=== PATIENT | male | born 1950 | race Caucasian/White ===

== ENCOUNTER → 2016-10-29 | Day surgery (SDC) | payer MEDICARE ==
[~2016-10-29] MED LIST: ACETAMINOPHEN PO; ADVAIR 250-501 EAC1 INH; ADVAIR 5001 DISK W/D PO; ALBUTEROL MININEB NEB; ALBUTEROL17 GM INH; ALL DAY ALLERGY10 M3 PO; ALLEGRA PO; ASPIRIN EC81 M1 PO; BENAZEPRIL HCL40 MG PO; CLARISPRAY9.9 ML; DIOVAN PO; GLUCOTROL PO; HCTZ PO; LOTENSIN20 MG PO; MUCINEX100 MG PO; NEXIUM PO; NORVASC PO; NORVASC10 MG PO; OMEPRAZOLE20 M2 PO; OXYGEN; PRAVACHOL80 MG PO; PREDNISONE; SINGULAIR PO; TOPROL XL50 MG PO; ZOCOR PO; ZYRTEC10 M1 PO
--- NOTE | ~2016-10-29 | OR ---
Unit #: [id number] #: [id number] Patient: KIRTI DALEY [id number] [address] [place], [place] [address] [id number] O MR#: [id number] NAME: KIRTI DALEY. ROOM: Date of Procedure: 10/29/2016 Admission Date: 10/29/2016 Surgeon: Santos Mcmullen M.D. : 1950 Attending Physician: Santos Mcmullen M.D. Primary Care Physician: Pavithra Babcock M.D. OPERATIVE REPORT PROCEDURE PERFORMED Esophagogastroduodenoscopy with biopsy. 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 He has intermittent dysphagia also. MEDICATIONS Monitored anesthesia. POSTOPERATIVE FINDINGS 1. Small segment of Urias esophagus along with moderate sized hiatal hernia. Biopsies taken. 2. Mild gastritis. Biopsies taken. 3. Normal duodenum and distal duodenum. PLAN Increase PPI to 20 mg b.i.d. Reflux precautions reinforced. Follow up on pathology. Urias's is identified and repeat upper endoscopy in 3 years. DESCRIPTION OF PROCEDURE The patient was explained of the procedure, risks, and benefits along with risks and benefits of anesthesia. He was brought to the endoscopy room. Propofol anesthesia was given. Bite block was placed. The scope was passed down the mouth into the esophagus, stomach, duodenum, and distal duodenum. Findings as described. Biopsies taken. Gently, I pulled it out of the patient's mouth. He tolerated it well. Dictated by... Maggie Beard/nicole TD: 10/29/2016 08:51 JOB #: [id number] Unit #: [id number] #: [id number] Patient: KIRTI DALEY OPERATIVE REPORT Page 1 of 1 X Santos Mcmullen MD X PROCEDURE OPERATIVE NOTE
== END | disposition home or self-care (01) ==
LOC: COPS 05:52
DX: K29.50 Unspecified chronic gastritis without bleeding (principal); K20.9 Esophagitis, unspecified; K44.9 Diaphragmatic hernia without obstruction or gangrene; E11.9 Type 2 diabetes mellitus without complications; J45.909 Unspecified asthma, uncomplicated; I25.2 Old myocardial infarction; Z87.442 Personal history of urinary calculi; Z87.19 Personal history of other diseases of the digestive system; Z79.82 Long term (current) use of aspirin; Z79.51 Long term (current) use of inhaled steroids; Z79.899 Other long term (current) drug therapy; Z98.1 Arthrodesis status; Z98.890 Other specified postprocedural states
CPT/HCPCS: 82947; 88305; 88312

== ENCOUNTER 2016-12-31 21:47 | Inpatient (IN) | payer MEDICARE ==
[~2016-12-31] VITALS: Ht 167.6 cm; Wt 97.0 kg
--- NOTE | ~2016-12-31 | HP ---
Unit #: [id number] #: [id number] Patient: KIRTI DALEY [id number] [facility] [address] [place], [place] [address] [id number] I MR#: [id number] NAME: KIRTI DALEY. ROOM: 331 Age: 66 Sex: M Admission Date: 01/01/2017 : 1950 Attending Physician: Shanti Solomon M.D. Primary Care Physician: Primary Care Physician No HISTORY AND PHYSICAL CHIEF COMPLAINT COPD exacerbation and bronchitis. HISTORY OF PRESENT ILLNESS This pleasant 66-year-old male with COPD, hypertension, GERD, CAD, is admitted for COPD exacerbation. The patient was in his usual state of health until 2 days prior to admission when he developed increasing shortness of breath, bronchospasm and a deep nonproductive cough. The cough is severe enough where he feels lightheaded. Denies fevers, sweats or chills. Notes some chest tightness which I believe is related to his cough. He presented to this emergency department late last evening with significant bronchospasm on exam. He was given bronchodilators along with 125 mg Solu-Medrol with improvement of his symptoms. However, his 02 sats were only about 88% on room air. On examination he still has significant wheezing. ? PAST MEDICAL HISTORY 1. COPD. 2. Hyperlipidemia. 3. Hypertension. 4. GERD. Last EGD 09/2016 revealed small segment Urias's esophagus with mild gastritis, moderate hiatal hernia. 5. CAD with previous cardiac catheterization revealing a small artery which apparently had stenosis per the patient which was not amenable to revascularization. Cardiolite stress test performed 05/2016 did show an area of anterior ischemia. The patient has followup with [facility] in March. Previous echo 2010 ejection fraction 55% with mild MR, , AR and TR. Right ventricular systolic pressures of 30 to 40 mmHg. 6. History of diverticular lower GI bleed, 08/2008. Last colonoscopy was performed 2015 revealing diverticular disease and internal hemorrhoids. The patient previously underwent removal of polyps in the past. 7. History of kidney stones requiring surgery. 8. C-spine surgery. SOCIAL HISTORY The patient lives alone. He stopped smoking over 10 years ago, and does not drink alcohol. FAMILY HISTORY Colon and prostate cancer. Unit #: [id number] #: [id number] Patient: KIRTI DALEY ALLERGIES No known drug allergies. MEDICATIONS Pravachol 80 mg daily. Benazepril 40 mg daily. Toprol XL, will check dose. Omeprazole 20 mg daily. Singulair 10 mg daily. Zyrtec 10 mg daily. Norvasc 10 mg daily. Advair 250/50 one puff b.i.d. Flonase Nasal [place]. REVIEW OF SYSTEMS Notable for cough, shortness of breath, bronchospasms, CAD, COPD, hyperlipidemia, hypertension, GERD, polyps, diverticular disease, kidney stone, C-spine surgery. All other systems are reviewed and are otherwise negative. PHYSICAL EXAMINATION GENERAL APPEARANCE: Pleasant moderately obese 66-year-old male currently in no acute distress. VITAL SIGNS: Temp 97, pulse 97, respirations 20, B/P 155/102. O2 sats were as low as 88% on room air. HEENT: Eyes - PERRLA, extraocular muscles are intact. Pharynx is benign. NECK: Supple without adenopathy or thyromegaly. CHEST: Chest reveals expiratory wheezed bilaterally. HEART: Slightly tachy S1 and S2 without murmur. ABDOMEN: Bowel sounds are present. No hepatosplenomegaly, tenderness or masses. EXTREMITIES: Without CC or E. Pedal pulses are present. NEUROLOGIC: The patient is awake, alert and oriented. Cranial nerves are intact. He has equal strength throughout. DIAGNOSTIC STUDIES LABORATORY: Hematocrit 45.9, white blood count is 11.5, MCV 78, normal platelet count. SMA 12 - glucose 174, alkaline phos 99. IMAGING: Chest x-ray - mild thoracic aorta ectasia, unchanged since 2008. No acute disease. CARDIOVASCULAR: EKG - sinus tachycardia, rate 118, otherwise normal. ASSESSMENT 1. COPD exacerbation with acute hypoxic respiratory failure due to bronchitis. 2. Essential hypertension. 3. Hypoglycemia. 4. Hyperlipidemia. 5. CAD and valvular heart disease. 6. GERD. PLAN 1. Steroids, bronchodilators, mucolytics and Zithromax. 2. DVT prophylaxis. 3. Obtain hemoglobin A1C and obtain Accu-Cheks while on steroids. Unit #: [id number] #: [id number] Patient: KIRTI DALEY STAT * RESULT Dictated by Maggie Ramsey/mykel TD: 01/01/2017 04:33 JOB #: [id number] CC: Pavithra Babcock M.D. HISTORY AND PHYSICAL Page 1 of 1 X Shanti Solomon MD X HISTORY AND PHYSICAL
--- NOTE | ~2016-12-31 | CO ---
Unit #: [id number] #: [id number] Patient: KIRTI DALEY [id number] [address] [place], [place] [address] [id number] I MR#: [id number] NAME: KIRTI DALEY. ROOM: 222 Age: 66 Sex: M Admission Date: 01/01/2017 : 1950 Attending Physician: Carmina Webb M.D. Consultation Date: 01/05/2017 CONSULTATION REPORT REASON FOR CONSULT COPD exacerbation. CHIEF COMPLAINT Shortness of breath. HISTORY OF PRESENT ILLNESS This is a very pleasant 66-year-old male with a past medical history significant for smoking for 30 years, hypertension, possible COPD versus asthma, GERD, coronary artery disease, and allergies, who presented to the emergency room with shortness of breath. Patient presented to the emergency room with a nonproductive cough, progressive shortness of breath, wheezing, and bronchospasm. Patient stated that he feels that his mucus is stuck in his throat, and sometimes he feels he is about to pass out when he is coughing. He stated that also he has allergies especially during summertime, and certain things make him sneeze, get runny eyes, and itching. Patient has smoked since age 12 for about 30 years, but he quit 20 years ago. He never had asthma in his childhood. PAST MEDICAL HISTORY 1. Chronic obstructive pulmonary disease. 2. Possible asthma. 3. Hyperlipidemia. 4. Hypertension. 5. Gastroesophageal reflux disease. 6. Coronary artery disease. 7. Diverticular disease. 8. Kidney stone. PAST SURGICAL HISTORY 1. C-spine surgery. 2. Kidney stone removal. SOCIAL HISTORY Patient lives alone. He quit smoking 20 years ago. However, in the medical record, it stated that he quit 10 years ago. He smoked for 30 years. No history of alcohol or drug abuse. FAMILY HISTORY Colon and prostate cancer. Unit #: [id number] #: [id number] Patient: KIRTI DALEY ALLERGIES No known drug allergies. HOME MEDICATIONS 1. Pravachol. 2. Benazepril. 3. Toprol. 4. Omeprazole. 5. Singulair. 6. Zyrtec. 7. Norvasc. 8. Advair. 9. Flonase. REVIEW OF SYSTEMS A 12-point review of systems was obtained and was negative except for what was mentioned in the HPI. PHYSICAL EXAMINATION GENERAL: Patient is in no acute distress. VITAL SIGNS: Temperature 98.2, blood pressure 149/95, and O2 saturation 96% on 2.5 liters nasal cannula. HEENT: Atraumatic and normocephalic. PERRLA. EOMI. NECK: Supple. No JVD, no lymphadenopathy. CLEAR: Bilateral diffuse rhonchi and wheezing. HEART: S1 and S2. No murmur, gallops, or rubs. ABDOMEN: Soft and nontender. Bowel sounds positive. No hepatosplenomegaly. EXTREMITIES: Trace edema. No cyanosis. SKIN: No rashes. CENTRAL NERVOUS SYSTEM: Awake, alert, and oriented x3. No focal motor/sensory deficits. DIAGNOSTIC STUDIES LABORATORY: Creatinine 0.9 and CO2 of 30. White blood count 13.8 and hemoglobin 14.4. IMAGING: Chest x-ray shows no acute infiltrate. ASSESSMENT 1. Acute exacerbation of chronic obstructive pulmonary disease. 2. Acute hypoxic respiratory failure. 3. Morbid obesity. 4. Hypertension. 5. Coronary artery disease. 6. Hyperglycemia, steroid related. PLAN 1. Will continue patient on oxygen but will wean down as tolerated. His baseline is room air. 2. IV steroids and bronchodilators. 3. Mucolytics and hypertonic saline. 4. Will add flutter valve and will encourage out of bed to chair and ambulation. 5. Will continue Zyrtec and Singulair as he probably has a component of allergies plus/minus asthma. 6. Patient will need PFT as an outpatient. Unit #: [id number] #: [id number] Patient: KIRTI DALEY Avis 7. DVT prophylaxis. 8. Patient may benefit from Lasix p.r.n. I would like to thank Dr. Galaviz for allowing me to be part of this patient's care. Dictated by... Maggie Hernandez TD: 01/05/2017 22:08 JOB #: [id number] CONSULTATION REPORT Page 1 of 1 X JACKLYN CARRERA MD X CONSULTATION REPORT
--- NOTE | ~2016-12-31 | DS ---
Unit #: [id number] #: [id number] Patient: KIRTI DALEY [id number] [address] [address] [id number] I MR#: [id number] NAME: KIRTI DALEY. ROOM: 222 Age: 66 Sex: M Admission Date: 01/01/2017 : 1950 Discharge Date: 01/08/2017 Attending Physician: Lu Galaviz M.D. Primary Care Physician: No Primary Care Physician DISCHARGE SUMMARY DISCHARGE DIAGNOSES 1. Acute hypoxic respiratory failure. 2. Chronic obstructive pulmonary disease with exacerbation. 3. Acute bronchitis. 4. Leukocytosis, likely from steroids. 5. Sepsis, likely from acute bronchitis. 6. Seasonal allergies. 7. Diabetes mellitus type 2 with mild elevation of hemoglobin A1c, newly diagnosed. 8. Hypertension. 9. Hyperlipidemia. 10. History of lower gastrointestinal bleed from diverticulosis. 11. Coronary artery disease, status post catheterization. CONSULTATION Dr. Pina Hernandez. PROCEDURES None. LAB DATA Glucose 151. Blood cultures negative. Creatinine 1.0, WBC 20.5, hemoglobin 14.2, platelets 245. ALLERGIES None. DISCHARGE MEDICATIONS 1. Albuterol two puffs inhalation four times daily p.r.n. shortness of breath. 2. Fluticasone with Solu-Medrol, two disc inhalation b.i.d. 3. Prednisone tapering dose. 4. Flonase 0.05% nasal spray daily. 5. Cetirizine 10 mg p.o. daily. 6. Norvasc 10 daily. 7. Toprol XL 50 daily. 8. Humibid LA 600 p.o. b.i.d. 9. Pravastatin 80 daily. 10. Benazepril 40 daily. 11. Singulair 10 daily. 12. Omeprazole 20 daily. 13. Saline nasal spray q.3 p.r.n. 14. Glucotrol 5 mg p.o. b.i.d. before meals. 15. Albuterol nebulizer four times daily p.r.n. shortness of breath. Unit #: [id number] #: [id number] Patient: KIRTI DALEY HOSPITALIZATION COURSE 66-year-old admitted because of shortness of breath. Acute hypoxic respiratory failure from COPD: Patient was on 3 L, currently he is on 2 L. I am going to check home O2 evaluation and arrange home O2 if sats less than 89%. COPD with exacerbation with acute bronchitis and sepsis: Patient was given IV Solu-Medrol. Broad spectrum antibiotics have been given. Duo-Nebs given. Currently breathing better. He does have mild shortness of breath and wheezing. Continue with Duo-Nebs and prednisone tapering dose at home and follow with Dr. Noel. Leukocytosis, mostly from steroids. No other signs of infection. Diarrhea resolved. Less likely C. diff. Diabetes mellitus type 2, newly diagnosed, likely from steroids. Start on glipizide. Continue with that and follow with family physician as an outpatient. Discharge home. Follow with family physician in one week time. Follow with Dr. Noel in one week time. Home O2 evaluation will be done before discharge. Discharge time taken is 35 minutes. Dictated by... Maggie Nichols/ruiz TD: 01/09/2017 12:04 JOB #: [id number] DISCHARGE SUMMARY Page 1 of 1 X Lu Galaviz MD X DISCHARGE SUMMARY
--- NOTE | ~2016-12-31 | CR72 ---
[facility] A Service of [facility] RADIOLOGY TEXT RESULTS PATIENT: KIRTI DALEY LOCATION: [facility] 331-01 : [birth year] UNIT #: [id number] AGE: [address]: Carmina Webb MD SEX: M ORDER DR: [id number] [facility] [address] [facility]. [place], [place] [address] [id number] MR#: [id number] Acc #: [id number] NAME: KIRTI DALEY : 1950 SEX: M STUDY DATE/TIME: 01/01/2017 0:53 UNIT: JANES ROOM: STUDY DESCRIPTION: CR Chest Single View Portable Attending Physician: Law Wray M.D. Ordering Physician: Law Wray M.D. Primary Care Physician: Primary Care Physician No MEDICAL IMAGING REPORT This report is preliminary unless electronic signature is present EXAM AP portable chest DATE: 01/01/2017 at 00:53 HISTORY Shortness of breath with asthma for 2 days. COMPARISON AP portable chest 10/01/2008. FINDINGS Mild thoracic aortic ectasia has a similar appearance to prior. Heart size is normal. Lungs appear free of acute airspace disease. No pleural effusion or pneumothorax is identified. There are surgical changes within the cervical spine. IMPRESSION 1. Stable thoracic aortic ectasia, similar to the 2009 study. 2. No acute chest findings. 3. Surgical changes within the cervical spine. Dictated by... Yashira Stewart M.D. THIS IS AN ELECTRONICALLY VERIFIED REPORT Yashira Stewart M.D. at 01/01/2017 9:49 PM [facility]/mykel TD: 01/01/2017 02:30 JOB #: [id number] [facility] A Service of [facility] RADIOLOGY TEXT RESULTS PATIENT: KIRTI DALEY LOCATION: [facility] 331-01 : [birth year] UNIT #: [id number] AGE: [address]: Carmina Webb MD SEX: M ORDER DR: MEDICAL IMAGING REPORT Page 1 of 1 COPY
--- NOTE | ~2016-12-31 | EKG ---
PATIENT: KIRTI DALEY UNIT #: [id number] Ventricular Rate: 118 BPM Atrial Rate: 118 BPM P-R Interval: 168 ms QRS Duration: 90 ms Q-T Interval: 322 ms QTC Calculation(Bezet): 451 ms P [place]: 50 degrees Calculated R [place]: 19 degrees Calculated T [place]: 52 degrees Diagnosis Line: Sinus tachycardia Diagnosis Line: Otherwise normal ECG Diagnosis Line: No previous ECGs available Diagnosis Line: Confirmed by AFSANEH ESQUIVEL MD ([id number]) on 01/03/2017 Diagnosis Line: 8:09:21 AM INTERPRETING MD: SIERRA ENCINAS
[~2016-12-31 21:47] MED LIST changes: -ADVAIR 250-501 EAC1 INH; -ALBUTEROL MININEB NEB; -ALBUTEROL17 GM INH; -BENAZEPRIL HCL40 MG PO; -CLARISPRAY9.9 ML; -GLUCOTROL PO; -MUCINEX100 MG PO; -NORVASC10 MG PO; -OXYGEN; -PREDNISONE; -ZYRTEC10 M1 PO
[2016-12-31 22:22] LABS: BASOPHIL# 0.1 X10e3 (0-0.3); BASOPHIL% 0.5 % (0-2.5); EOSINOPHIL# 0.6 X10e3 (0-0.7); EOSINOPHIL% 5.2 % (0.0-7.0); HEMATOCRIT 45.9 % (38.0-50.0); HEMOGLOBIN 15.3 gm/dL (13.0-16.0); LYMPHOCYTE# 1.9 X10e3 (1.0-3.5); LYMPHOCYTE% 16.6 % (17.0-45.0); MEAN CELL VOLUME 77.9 FL (83-96); MEAN CORPUSCULAR HGB CONC 33.3 g/dL (30-36); MONOCYTE# 0.8 X10e3 (0-1.0); MONOCYTE% 6.6 % (3.0-12.0); NEUTROPHIL# 8.2 X10e3 (1.5-7.1); NEUTROPHIL% 71.1 % (40-75); PLATELET COUNT 255 X10e3 (140-420); RED BLOOD COUNT 5.89 X10e (3.90-5.60); RED CELL DISTRIBUTION WIDTH 14.4 % (11.0-15.5); WHITE BLOOD COUNT 11.5 X10e3 (4.0-10.5)
[2016-12-31 22:23] LABS: DIFF IND NO
[2016-12-31 22:43] LABS: ALBUMIN SERUM 4.3 g/dL (3.5-5.0); BILIRUBIN, DIRECT 0.1 mg/dL (0.0-0.2); BILIRUBIN,INDIRECT 0.5 mg/dL (0.0-0.9); BILIRUBIN,TOTAL 0.6 mg/dL (0.2-2.0); CALCIUM SERUM 9.4 mg/dL (8.4-10.2); GLOM FILT RATE Estimated 78.1 mL/min (>60); POTASSIUM 3.9 mmol/L (3.5-5.1); PROTEIN TOTAL SERUM 7.8 g/dL (6.0-8.3)
[2016-12-31] MEDS ORDERED: ADVAIR 250-501 EAC1 INH (23:32)
[2016-12-31] MEDS ORDERED: NORVASC10 MG PO (23:32)
[2016-12-31] MEDS ORDERED: BENAZEPRIL HCL40 MG PO (23:33)
[2016-12-31] MEDS ORDERED: ZYRTEC10 M1 PO (23:33)
[2016-12-31] MEDS ORDERED: CLARISPRAY9.9 ML (23:34)
[2016-12-31] MEDS ORDERED: PRAVACHOL80 MG PO (23:35)
[2016-12-31] MEDS ORDERED: OMEPRAZOLE20 M2 PO (23:35)
[2016-12-31] MEDS ORDERED: SINGULAIR PO (23:35)
[2016-12-31] MEDS ORDERED: TOPROL XL50 MG PO (23:35)
[2016-12-31] MEDS ORDERED: ALBUTEROL17 GM INH (23:36)
[2017-01-01 03:04] LABS: POC - CKMB <1.0 ng/mL (0.0-7.9); POC - TROPONIN <0.05 ng/mL (<=0.05)
[2017-01-01 06:56] LABS: BASOPHIL% 0.1 % (0-2.5); EOSINOPHIL% 0.1 % (0.0-7.0); HEMATOCRIT 45.2 % (38.0-50.0); HEMOGLOBIN 15.1 gm/dL (13.0-16.0); LYMPHOCYTE# 0.2 X10e3 (1.0-3.5); LYMPHOCYTE% 2.4 % (17.0-45.0); MEAN CELL VOLUME 78.7 FL (83-96); MEAN CORPUSCULAR HEMOGLOBIN 26.3 PG (28-34); MEAN CORPUSCULAR HGB CONC 33.5 g/dL (30-36); MEAN PLATELET VOLUME 9.2 FL (6.5-11.5); MONOCYTE# 0.1 X10e3 (0-1.0); MONOCYTE% 1.1 % (3.0-12.0); NEUTROPHIL# 9.4 X10e3 (1.5-7.1); NEUTROPHIL% 96.3 % (40-75); PLATELET COUNT 232 X10e3 (140-420); RED BLOOD COUNT 5.74 X10e (3.90-5.60); RED CELL DISTRIBUTION WIDTH 14.4 % (11.0-15.5); WHITE BLOOD COUNT 9.8 X10e3 (4.0-10.5)
[2017-01-01 07:00] LABS: DIFF IND NO
[2017-01-01 07:27] LABS: BUN/CREATININE RATIO 19.09; CALCIUM SERUM 9.2 mg/dL (8.4-10.2); CREATININE SERUM 1.1 mg/dL (0.6-1.4); GLOM FILT RATE Estimated 69.6 mL/min (>60); POTASSIUM 4.3 mmol/L (3.5-5.1)
[2017-01-01 12:13] LABS: IRON SERUM 49 ug/dL (45-182); TOTAL IRON BINDING CAPACITY 366 ug/dL (252-460); TRANSFERRIN 261 mg/dL (180-329); TRANSFERRIN SATURATION 13 % (20-50)
[2017-01-01 12:20] LABS: PROTHROMBIN TIME (PATIENT) 10.9 SECONDS (10.0-11.7)
[2017-01-02 06:17] LABS: CALCIUM SERUM 9.3 mg/dL (8.4-10.2); GLOM FILT RATE Estimated 78.1 mL/min (>60); POTASSIUM 5.2 mmol/L (3.5-5.1)
[2017-01-03 05:31] LABS: HEMATOCRIT 41.7 % (38.0-50.0); HEMOGLOBIN 13.8 gm/dL (13.0-16.0); MEAN CELL VOLUME 78.6 FL (83-96); MEAN CORPUSCULAR HEMOGLOBIN 25.9 PG (28-34); MEAN PLATELET VOLUME 9.1 FL (6.5-11.5); RED BLOOD COUNT 5.31 X10e (3.90-5.60); RED CELL DISTRIBUTION WIDTH 14.9 % (11.0-15.5)
[2017-01-03 06:41] LABS: BUN/CREATININE RATIO 25.55; CALCIUM SERUM 9.1 mg/dL (8.4-10.2); CREATININE SERUM 0.9 mg/dL (0.6-1.4); GLOM FILT RATE Estimated 88.7 mL/min (>60); POTASSIUM 4.6 mmol/L (3.5-5.1)
[2017-01-04 05:23] LABS: HEMATOCRIT 42.9 % (38.0-50.0); HEMOGLOBIN 14.1 gm/dL (13.0-16.0); MEAN CELL VOLUME 78.5 FL (83-96); MEAN CORPUSCULAR HEMOGLOBIN 25.8 PG (28-34); MEAN CORPUSCULAR HGB CONC 32.9 g/dL (30-36); MEAN PLATELET VOLUME 8.6 FL (6.5-11.5); RED BLOOD COUNT 5.47 X10e (3.90-5.60); RED CELL DISTRIBUTION WIDTH 14.2 % (11.0-15.5); WHITE BLOOD COUNT 15.1 X10e3 (4.0-10.5)
[2017-01-05 05:20] LABS: HEMATOCRIT 44.1 % (38.0-50.0); HEMOGLOBIN 14.4 gm/dL (13.0-16.0); MEAN CELL VOLUME 78.6 FL (83-96); MEAN CORPUSCULAR HEMOGLOBIN 25.7 PG (28-34); MEAN CORPUSCULAR HGB CONC 32.7 g/dL (30-36); MEAN PLATELET VOLUME 8.9 FL (6.5-11.5); RED BLOOD COUNT 5.61 X10e (3.90-5.60); RED CELL DISTRIBUTION WIDTH 14.4 % (11.0-15.5); WHITE BLOOD COUNT 13.8 X10e3 (4.0-10.5)
[2017-01-05 06:01] LABS: BUN/CREATININE RATIO 31.11; CALCIUM SERUM 9.1 mg/dL (8.4-10.2); CREATININE SERUM 0.9 mg/dL (0.6-1.4); GLOM FILT RATE Estimated 88.7 mL/min (>60); POTASSIUM 4.8 mmol/L (3.5-5.1)
[2017-01-06 05:26] LABS: HEMATOCRIT 43.9 % (38.0-50.0); HEMOGLOBIN 14.5 gm/dL (13.0-16.0); MEAN CELL VOLUME 77.9 FL (83-96); MEAN CORPUSCULAR HEMOGLOBIN 25.8 PG (28-34); MEAN CORPUSCULAR HGB CONC 33.1 g/dL (30-36); MEAN PLATELET VOLUME 8.5 FL (6.5-11.5); RED BLOOD COUNT 5.64 X10e (3.90-5.60); RED CELL DISTRIBUTION WIDTH 14.8 % (11.0-15.5); WHITE BLOOD COUNT 14.7 X10e3 (4.0-10.5)
[2017-01-07 05:58] LABS: HEMOGLOBIN 14.2 gm/dL (13.0-16.0); MEAN CELL VOLUME 78.1 FL (83-96); MEAN CORPUSCULAR HEMOGLOBIN 25.8 PG (28-34); RED BLOOD COUNT 5.51 X10e (3.90-5.60); RED CELL DISTRIBUTION WIDTH 14.5 % (11.0-15.5); WHITE BLOOD COUNT 20.5 X10e3 (4.0-10.5)
[2017-01-07 06:25] LABS: CALCIUM SERUM 8.7 mg/dL (8.4-10.2); GLOM FILT RATE Estimated 78.1 mL/min (>60); POTASSIUM 4.6 mmol/L (3.5-5.1)
[2017-01-08] MEDS ORDERED: GLUCOTROL PO (14:16)
[2017-01-08] MEDS ORDERED: MUCINEX100 MG PO (14:17)
[2017-01-08] MEDS ORDERED: ALBUTEROL MININEB NEB (14:18)
[2017-01-08] MEDS ORDERED: PREDNISONE (14:18)
[2017-01-08] MEDS ORDERED: OXYGEN (14:19)
== END 2017-01-08 15:56 | disposition home or self-care (01) | DRG 871 ==
LOC: CED 21:47 → CEDOF 01-01 03:20 → C2A 01-01 03:20 → C3A PCU 01-01 03:28 → CED 01-01 03:28 → CEDOF 01-01 03:28 → C3A PCU 01-01 04:30 → CEDOF 01-01 04:30 → C3A PCU 01-01 07:47 → C2A 01-02 16:14
PROVIDERS: Emergency Medicine; Internal Medicine; Internal Medicine Pulmonary Disease
DX: A41.9 Sepsis, unspecified organism (principal); R65.21 Severe sepsis with septic shock; J96.01 Acute respiratory failure with hypoxia; I08.3 Combined rheumatic disorders of mitral, aortic and tricuspid valves; E66.01 Morbid (severe) obesity due to excess calories; J44.0 Chronic obstructive pulmonary disease with (acute) lower respiratory infection; J44.1 Chronic obstructive pulmonary disease with (acute) exacerbation; I10 Essential (primary) hypertension; E78.5 Hyperlipidemia, unspecified; K21.9 Gastro-esophageal reflux disease without esophagitis; I25.10 Atherosclerotic heart disease of native coronary artery without angina pectoris; Z87.442 Personal history of urinary calculi; Z87.891 Personal history of nicotine dependence; E09.9 Drug or chemical induced diabetes mellitus without complications; T38.0X5A Adverse effect of glucocorticoids and synthetic analogues, initial encounter; J20.9 Acute bronchitis, unspecified; Z68.34 Body mass index [BMI] 34.0-34.9, adult; E87.5 Hyperkalemia
CPT/HCPCS: 36415; 71010; 80048; 80076; 82553; 82947; 83036; 83540; 83550; 83605; 84132; 84484; 85025; 85027; 85610; 87040; 93005; 94640; 94644; 94664; 94760; 96374; 99285; G0238; J0456; J1650; J1815; J1940; J2920; J2930